=== PATIENT | male | born 1975 | race Two or more races ===

== ENCOUNTER 2018-12-10 16:24 | Emergency (ER) | payer MEDICAID, OTHER ==
[~2018-12-10] VITALS: Ht 172.7 cm; Wt 88.5 kg
[2018-12-10] MEDS ORDERED: DexAMETHasone SOD PHOS 10MG/1ML VIAL INJ IM ONE (19:00)
[2018-12-10] MEDS ORDERED: cefTRIAXone SOD 1,000 MG VL IM ONE (19:00)
[2018-12-10 19:35] VITALS: BP 140/74
== END 2018-12-10 19:45 | disposition home or self-care (01) ==
LOC: ER 16:24
DX: J06.9 Acute upper respiratory infection, unspecified (principal); R51 Headache; J02.9 Acute pharyngitis, unspecified
CPT/HCPCS: 71046; 96372; 99283; J0696; J1100